=== PATIENT | female | born 1950 | race Caucasian/White ===

== ENCOUNTER → 2017-08-17 | Outpatient (CLI) | payer OTHER ==
[~2017-08-17] MED LIST: CELEXA; HYZAAR 12.5 MG-1 TAB PO; WELLBUTRIN SR150 M1 PO; ZOCOR
== END ==
LOC: MC.RAD 10:20
DX: Z12.31 Encounter for screening mammogram for malignant neoplasm of breast (principal)

== ENCOUNTER → 2019-08-07 | Outpatient (CLI) | payer MEDICARE | LOC: MC.RAD 13:56 | DX: Z12.31 Encounter for screening mammogram for malignant neoplasm of breast (principal) ==

== ENCOUNTER → 2020-09-04 | Outpatient (CLI) | payer MEDICARE | LOC: MC.RAD 09:12 | DX: Z12.31 Encounter for screening mammogram for malignant neoplasm of breast (principal) ==

== ENCOUNTER → 2021-09-14 | Outpatient (CLI) | payer MEDICARE | LOC: MC.RAD 10:24 | DX: Z12.31 Encounter for screening mammogram for malignant neoplasm of breast (principal) ==

== ENCOUNTER → 2022-08-03 | Day surgery (SDC) | payer BC ==
[~2022-08-03] VITALS: Ht 170.2 cm; Wt 83.6 kg
[~2022-08-03] MED LIST changes: +COZAAR100 MG PO; +VITAMIN D31000 I1 PO
[2022-08-03 11:59] VITALS: BP 129/81; PULSE 66; TEMP 97.4
[2022-08-03 12:53] VITALS: BP 105/62; PULSE 62; TEMP 97.8
--- NOTE | 2022-08-03 12:53 | NUR ---
1253- PATIENT RETURNS TO [facility] [place] [facility] VIA CART. AWAKE AND ALERT. RESPIRATIONS UNLABORED. PATIENT AMBULATED TO RECLINER CHAIR WITH A 2:1 SBA. DENIES NAUSEA OR ABDOMINAL PAIN.HOOKED UP TO MONITOR AND VS OBTAINED. CALL LIGHT AT SIDE AND FRIEND PRESENT IN ROOM. 1300- PATIENT TOLERATING SNACK AND DRINK WITHOUT NAUSEA OR DIFFICULTY SWALLOWING. 1324- DR. HYLTON IN ROOM SPEAKING WITH PATIENT.
[2022-08-03 13:10] VITALS: BP 111/76; PULSE 59
[2022-08-03 13:25] VITALS: BP 118/66; PULSE 52
--- NOTE | 2022-08-03 13:35 | NUR ---
1335 THIS NURSE RECIEVED REPORT ON PATIENT FROM CLINT FRANKLIN. THIS NURSE DISCUSSED DISCHARGE INSTRUCTIONS WITH PATIENT. PATIENT VERBALIZED UNDERSTANDING WITH NO FURTHER QUESTIONS OR CONCERNS. 1340 PATIENT DRESSES SELF. 1350 PATIENT DISCHARGES FROM UNIT VIA WHEELCHAIR IN TO PERSONAL VEHICLE.
== END ==
LOC: SDCO 11:45
DX: K29.50 Unspecified chronic gastritis without bleeding (principal); B96.81 Helicobacter pylori [H. pylori] as the cause of diseases classified elsewhere; K44.9 Diaphragmatic hernia without obstruction or gangrene; K31.7 Polyp of stomach and duodenum; I10 Essential (primary) hypertension
CPT/HCPCS: J2704; J7120